=== PATIENT | male | born 1970 | race Caucasian/White ===

== ENCOUNTER → 2016-12-01 | Outpatient (REF) | payer OTHER ==
[~2016-12-01] MED LIST: /INSU7030; /OMEP10CA; AVAP300T; Avalide; BUDE150T; Byetta; FLUO40CA PO; GABA-282 PO; GLUC850T; GLUC850T PO; HYDR25TA6; INSULANT SC; INSUNSD SC; INVO300T PO; IRBE150T14 PO; LIPI20TA; OMEP20CA3 PO; POTA99TA PO; PRAV80TA2 PO; PRIL40CA; PROZ40CA; VENL150C43 PO; WELL75TA; ZOCO20TA; pristiq
[2016-12-01 11:30] LABS: FOLATE 15.2 NG/ML
== END ==
LOC: M LABNEURO 09:58
PROVIDERS: ATTEND Psychiatry & Neurology Neurology
DX: R20.2 Paresthesia of skin (principal)

== ENCOUNTER 2017-01-05 09:55 | Day surgery (SDC) | payer OTHER ==
[~2017-01-05] VITALS: Ht 180.3 cm; Wt 106.6 kg
[2017-01-05] MEDS ORDERED: BUPIVACAINE HCL 0.5% 30 ML VIAL As Ordered ONE (12:13)
[2017-01-05] MEDS ORDERED: MIDAZOLAM INJ 2 MG/2 ML VIAL (J2250) As Ordered ONE (12:39)
[2017-01-05] MEDS ORDERED: fentaNYL 250 MCG/5 ML INJECTION (J3010) As Ordered ONE (12:39)
[2017-01-05] MEDS ORDERED: LIDOCAINE 2% INJ 100 MG/5 ML SDV (FOR ANES.) As Ordered ONE (12:42)
[2017-01-05] MEDS ORDERED: PROPOFOL 200 MG/20 ML VIAL As Ordered ONE (12:42)
[2017-01-05] MEDS ORDERED: SUCCINYLCHOLINE 100 MG/5 ML SYRINGE (J0330) As Ordered ONE (12:42)
[2017-01-05] MEDS ORDERED: ONDANSETRON 4MG/2ML VIAL (J2405) As Ordered ONE (12:42)
[2017-01-05] MEDS ORDERED: dexameTHASONE 4 MG/ML 1ML VIAL (J1100) As Ordered ONE (12:42)
[2017-01-05] MEDS ORDERED: METOCLOPRAMIDE INJ 10MG/2ML VIAL (J2765) As Ordered ONE (12:43)
[2017-01-05] MEDS ORDERED: HYDROmorphone HCL 2 MG/ML 1ML VIAL (J1170) As Ordered ONE (15:34)
--- NOTE | 2017-01-05 16:36 | REP ---
Right foot intraoperative fluoroscopic views: There are two intraoperative fluoroscopic views. Fluoroscopic exposure time is 52.3 seconds. Fluoroscopic images are performed last image hold technology. These images require no additional radiation. Signed by Bimal Gutierrez MD 01/05/2017 04:27 P
[2017-01-05] MEDS ORDERED: oxyCODONE 5MG TAB PO PRN ×2 (16:45)
[2017-01-05] MEDS ORDERED: ONDANSETRON 4MG/2ML VIAL (J2405) IV PRN (16:45)
[2017-01-05] MEDS ORDERED: MEPERIDINE INJ 25 MG/ML VIAL (J2175) IV PRN (16:45)
[2017-01-05] MEDS ORDERED: METOCLOPRAMIDE INJ 10MG/2ML VIAL (J2765) IV PRN (16:45)
[2017-01-05] MEDS ORDERED: fentaNYL 100 MCG/2 ML INJECTION (J3010) IV PRN (16:45)
[2017-01-05] MEDS ORDERED: LR 1,000 ML IV SCH ×2 (16:45)
[2017-01-05] MEDS: PERCOCET 5MG/325MG TAB PO PRN ×2 (16:47→18:10)
[2017-01-05 19:50] VITALS: BP 138/86
--- NOTE | 2017-01-05 19:59 | RO ---
DATE OF PROCEDURE: 01/05/2017 PREPROCEDURE DIAGNOSIS: Right tibialis anterior tendonosis and rupture. POSTPROCEDURE DIAGNOSIS: Right tibialis anterior tendonosis rupture. PROCEDURE: Right posterior tendon transfer to the dorsum of the foot, FDL transfer to the navicular, FDL to FHL tenodesis, debridement of anterior tibial tendon stump SURGEON: Kimber Carter MD REGRINDER: Wilber Jonas MD ANESTHESIA: General endotracheal ESTIMATED BLOOD LOSS: 50 mL. TOURNIQUET TIME: 149 minutes IMPLANTS: Arthrex 7 x 23 mm BioComposite Bio-Tenodesis screw. COMPLICATIONS: None. CONDITION: Stable in recovery. INDICATIONS: Kenneth Ortiz is a 46-year-old male who sustained a right tibialis anterior rupture at the beginning of October. The patient has elected to undergo a posterior tibial tendon transfer to the dorsum of the foot given his foot drop, as he is young and would not like to be in a brace for the rest of his life. Risks and benefits of the surgery were discussed with the patient in detail, including infection, deep vein thrombosis (DVT)/pulmonary embolism (PE), continued pain or stiffness, a failed tendon transfer, need for additional procedures. Despite these risks, the patient wishes to proceed with the surgery. His diabetes is well controlled with his latest hemoglobin A1c at 7%. He was cleared preoperatively by both his medical doctor and wireline operator. DESCRIPTION OF PROCEDURE: The patient was met in the preoperative holding area where his right lower extremity was marked as the correct operative site. Informed consent was reviewed. He was taken to the operating room where he was transferred in the supine position to the operating room table. His bony prominences were well padded and a bump was placed under the ipsilateral hip. The patient underwent general anesthesia without any difficulty. He received preoperative Kefzol. The right lower extremity was prepped and draped in the normal sterile fashion. A well-padded tourniquet was applied prior to prepping and draping. Incisions were marked out over the posterior tibial tendon just proximal to the medial malleolus and a third incision over the tibialis anterior. The leg was exsanguinated and the tourniquet was inflated to 250 mmHg. At this point, an incision was made medially over the navicular. The posterior tibial tendon was identified. This was elevated off the navicular and medial cuneiform to include some of the periosteum to help with length of the tendon. The tendon was tubularized with #2 FiberWire. There were some areas of tendinosis in the posterior tibial tendon itself. These were debrided with a sharp #15 blade. Overall, the tendon did appear healthy enough for transfer. Next, an incision was made proximal to the medial malleolus just over the posteromedial border of the tibia. Blunt dissection at the level of the fascia was performed, and the fascia was incised exposing the posterior tibial tendon at this interval. The tendon was then pulled from the distal incision through the proximal incision. It was kept inside this incision for the time being. Next, an incision was made just lateral to the tibial crest, proximal to the tibiotalar joint in the area of the distal one-third of the tibia. The fascia was incised, and the tibialis anterior and neurovascular bundle were all retracted laterally. The interosseous membrane was exposed and a blunt aminah clamp was passed through the interosseous membrane to the medial incision. This clamp proved to be too large and eventually using a Promise clamp, we were able to pass the posterior tibial tendon through the interosseous membrane posteriorly out anteriorly through the distal tibia incision. The tendon had good excursion. It was placed into the wound to keep it moist. At this point, the lateral cuneiform was identified on x-ray. An incision was made over the lateral cuneiform and blunt dissection with care to protect the superficial peroneal nerve was performed. The fascia over the extensor digitorum longus (EDL) was incised, and the EDL and extensor digitorum brevis (EDB) were retracted. The lateral cuneiform was exposed. This was confirmed on oblique radiograph. At this point, the attention was turned back to the medial aspect of the foot. The flexor digitorum longus (FDL) was identified and dissected down to the knot of Curt with very careful hemostasis along the way. The flexor hallucis longus (FHL) and FDL were tenodesed using a #2 FiberWire in a [id number] fashion. The FDL was transected. At this point, using x-ray, a tunnel was drilled in the navicular for passage of the FDL. The FDL was passed through and then secured with #2 FiberWire with three [id number] sutures, two dorsally and one plantarly. The sutures in the tendon themselves were also sewn back to the remaining tissue using a free needle. The FDL transfer did appear to be secure. Next, at this point, the tenodesis of the posterior tibial tendon was performed. Using x-ray, a wire was passed in the center of the lateral cuneiform. A 7 mm reamer was used to approximately 25 mm. The tendon was passed through the bottom of the foot using a Beath pin. A 7 x 23 mm Bio-Tenodesis screw was selected and the tendon was secured to the lateral cuneiform with the foot in neutral dorsiflexion. All of the wounds were copiously irrigated, and the tourniquet was let down. Hemostasis was maintained. The deep tissues were closed using #3-0 Vicryl as were the subcutaneous tissues. Skin was closed using #3-0 nylon. Sterile dressings were applied in addition to a well-padded splint in neutral. PLAN: The patient will be non-weightbearing in a splint for 6 weeks. We will see him back at 2 weeks for a wound check. He may go into a cast for 2 weeks after this versus a boot. He will be on aspirin for deep vein thrombosis (DVT) prophylaxis. EZRA
== END 2017-01-05 20:00 | disposition home or self-care (01) ==
LOC: M SDC 09:55
PROVIDERS: ATTEND Orthopaedic Surgery
DX: M66.871 Spontaneous rupture of other tendons, right ankle and foot (principal); M65.871 Other synovitis and tenosynovitis, right ankle and foot; I10 Essential (primary) hypertension; E78.00 Pure hypercholesterolemia, unspecified; E11.9 Type 2 diabetes mellitus without complications; F41.9 Anxiety disorder, unspecified; F32.9 Major depressive disorder, single episode, unspecified; M47.892 Other spondylosis, cervical region; K21.9 Gastro-esophageal reflux disease without esophagitis; M12.9 Arthropathy, unspecified; M54.2 Cervicalgia; R56.9 Unspecified convulsions; Z79.899 Other long term (current) drug therapy; Z79.84 Long term (current) use of oral hypoglycemic drugs; Z79.4 Long term (current) use of insulin; Z98.84 Bariatric surgery status
CPT/HCPCS: 27691; 27692; 28230; 73610; 88304; C1713; J0330; J0690; J1100; J1170; J2250; J2405; J2765; J3010

== ENCOUNTER 2017-09-24 16:49 | Inpatient (IN) | payer OTHER ==
[2017-09-24 18:17] LABS: HEMATOCRIT 36.1 % (42.0-52.0); HEMOGLOBIN 10.4 g/dl (13.5-17.5); MEAN CORPUSCULAR HEMOGLOBIN 20.1 pg (27.0-33.0); MEAN CORPUSCULAR HGB CONC 28.8 g/dl (32.0-36.5); MEAN CORPUSCULAR VOLUME 69.8 fl (80.0-96.0); PLATELET COUNT, AUTOMATED 441 10^3/uL (150-450); RED BLOOD COUNT 5.17 10^6/uL (4.30-6.10); RED CELL DISTRIBUTION WIDTH 17.4 % (11.5-14.5); WHITE BLOOD COUNT 8.7 10^3/uL (4.0-10.0)
[2017-09-24 18:43] LABS: AMPHETAMINES LEVEL URINE NEGATIVE (NEGATIVE); BARBITURATES URINE NEGATIVE (NEGATIVE); BENZODIAZEPINES URINE NEGATIVE (NEGATIVE); CANNABINOIDS URINE NEGATIVE (NEGATIVE); COCAINE METABOLITE URINE NEGATIVE (NEGATIVE); METHADONE URINE NEGATIVE (NEGATIVE); OPIATES URINE NEGATIVE (NEGATIVE); PHENCYCLIDINE URINE NEGATIVE (NEGATIVE)
[2017-09-24 18:53] LABS: ACETAMINOPHEN LEVEL < 2.0 UG/ML (10.0-30.0); ALBUMIN/GLOBULIN RATIO 1.18 (1.00-1.93); ALKALINE PHOSPHATASE 71 U/L (45-117); ALT/SGPT 23 U/L (12-78); ANION GAP 10 MEQ/L (8-16); AST/SGOT 18 U/L (7-37); BILIRUBIN,DIRECT 0.2 MG/DL (0.0-0.2); BILIRUBIN,TOTAL 0.8 MG/DL (0.2-1.0); BLOOD UREA NITROGEN 9 MG/DL (7-18); CALCIUM LEVEL 8.7 MG/DL (8.5-10.1); CARBON DIOXIDE LEVEL 26 MEQ/L (21-32); CHLORIDE LEVEL 104 MEQ/L (98-107); CREATININE FOR GFR 0.68 MG/DL (0.70-1.30); ETHYL ALCOHOL (ETHANOL) < 0.003 % (0.000-0.010); GLOMERULAR FILTRATION RATE > 60.0 (>60); GLUCOSE, FASTING 120 MG/DL (70-100); SALICYLATE LEVEL < 1.7 MG/DL (5.0-30.0); SODIUM LEVEL 140 MEQ/L (136-145); TOTAL PROTEIN 7.4 GM/DL (6.4-8.2)
[2017-09-24] MEDS ORDERED: MAALOX 30 ML SUSP *UDC PO (19:45)
[2017-09-24] MEDS ORDERED: ACETAMINOPHEN TAB 650MG DOSE (2X325MG) PO (19:45)
[2017-09-24] MEDS ORDERED: MOM 30ML SUSPENSION UDC PO (19:45)
[2017-09-24] MEDS ORDERED: traZODone 50 MG TAB PO (19:45)
[2017-09-24 23:04] LABS: BEDSIDE GLUCOSE 86 MG/DL (70-105)
[2017-09-25] MEDS: LEVEMIR (INSULIN DETEMIR) 1 UNITS/0.01ML SC ×2 (00:52→21:52)
[2017-09-25] MEDS ORDERED: DEXTROSE 50% 50 ML SYRINGE IV (09:15)
[2017-09-25] MEDS ORDERED: OMEPRAZOLE 20 MG CAP PO (09:15)
[2017-09-25] MEDS ORDERED: GLUCOSE 4 GM CHEW TABLET PO (09:15)
[2017-09-25] MEDS ORDERED: GLUCAGON FOR INJ 1 MG VIAL (J1610) SC (09:15)
[2017-09-25 09:37] LABS: BEDSIDE GLUCOSE 176 MG/DL (70-105)
[2017-09-25] MEDS: GABAPENTIN 300 MG CAP PO ×3 (09:53→21:50)
[2017-09-25] MEDS: IRBESARTAN 75MG TABLET PO (10:29)
[2017-09-25 11:54] LABS: ESTIMATED AVERAGE GLUCOSE 171 MG/DL (60-110); HEMOGLOBIN A1c 7.6 %
[2017-09-25] MEDS: metFORMIN 850 MG TAB PO ×2 (12:11→17:02)
[2017-09-25] MEDS: HumaLOG INSULIN (NovoLOG) PER UNIT SC ×3 (12:13→21:00)
[2017-09-25 12:15] LABS: BEDSIDE GLUCOSE 127 MG/DL (70-105)
[2017-09-25] MEDS: VENLAFAXINE **XR** 75MG CAPSULE PO (16:46)
[2017-09-25] MEDS: FLUoxetine 20 MG CAP PO (16:46)
[2017-09-25 16:51] LABS: BEDSIDE GLUCOSE 117 MG/DL (70-105)
[2017-09-25] MEDS: ATORVASTATIN 20 MG TAB PO (21:50)
[2017-09-25] MEDS: ARIPiprazole 2 MG TAB PO (21:50)
[2017-09-25 21:52] LABS: BEDSIDE GLUCOSE 148 MG/DL (70-105)
[2017-09-26 06:24] LABS: BEDSIDE GLUCOSE 101 MG/DL (70-105)
[2017-09-26] MEDS: HumaLOG INSULIN (NovoLOG) PER UNIT SC ×4 (06:25→20:59)
[2017-09-26] MEDS: FLUoxetine 20 MG CAP PO (08:20)
[2017-09-26] MEDS: metFORMIN 850 MG TAB PO ×3 (08:20→17:09)
[2017-09-26] MEDS: VENLAFAXINE **XR** 75MG CAPSULE PO (08:20)
[2017-09-26] MEDS: GABAPENTIN 300 MG CAP PO ×3 (08:20→20:56)
[2017-09-26] MEDS: IRBESARTAN 75MG TABLET PO (08:20)
[2017-09-26] MEDS ORDERED: VENLAFAXINE 37.5 MG TAB PO (09:00)
[2017-09-26 12:06] LABS: BEDSIDE GLUCOSE 121 MG/DL (70-105)
[2017-09-26 16:26] LABS: BEDSIDE GLUCOSE 139 MG/DL (70-105)
[2017-09-26 20:55] LABS: BEDSIDE GLUCOSE 156 MG/DL (70-105)
[2017-09-26] MEDS: ATORVASTATIN 20 MG TAB PO (20:56)
[2017-09-26] MEDS: ARIPiprazole 2 MG TAB PO (20:56)
[2017-09-26] MEDS: LEVEMIR (INSULIN DETEMIR) 1 UNITS/0.01ML SC (21:00)
[2017-09-27 06:16] LABS: BEDSIDE GLUCOSE 129 MG/DL (70-105)
[2017-09-27] MEDS: HumaLOG INSULIN (NovoLOG) PER UNIT SC ×4 (06:37→20:17)
[2017-09-27] MEDS: FLUoxetine 20 MG CAP PO (08:22)
[2017-09-27] MEDS: metFORMIN 850 MG TAB PO ×3 (08:22→17:02)
[2017-09-27] MEDS: VENLAFAXINE **XR** 75MG CAPSULE PO (08:22)
[2017-09-27] MEDS: IRBESARTAN 75MG TABLET PO (08:23)
[2017-09-27] MEDS: GABAPENTIN 300 MG CAP PO ×3 (08:23→20:11)
[2017-09-27 11:44] LABS: BEDSIDE GLUCOSE 165 MG/DL (70-105)
[2017-09-27 17:01] LABS: BEDSIDE GLUCOSE 141 MG/DL (70-105)
[2017-09-27] MEDS: ATORVASTATIN 20 MG TAB PO (20:11)
[2017-09-27] MEDS: LEVEMIR (INSULIN DETEMIR) 1 UNITS/0.01ML SC (20:15)
[2017-09-27 20:18] LABS: BEDSIDE GLUCOSE 215 MG/DL (70-105)
[2017-09-28 06:15] LABS: BEDSIDE GLUCOSE 167 MG/DL (70-105)
[2017-09-28] MEDS: HumaLOG INSULIN (NovoLOG) PER UNIT SC ×2 (06:58→12:06)
[2017-09-28] MEDS: metFORMIN 850 MG TAB PO ×2 (08:34→12:06)
[2017-09-28] MEDS: FLUoxetine 20 MG CAP PO (08:34)
[2017-09-28] MEDS: IRBESARTAN 75MG TABLET PO (08:36)
[2017-09-28] MEDS: GABAPENTIN 300 MG CAP PO ×2 (08:36→15:56)
[2017-09-28] MEDS ORDERED: FLUoxetine 20 MG CAP PO (09:00)
[2017-09-28 11:23] LABS: BEDSIDE GLUCOSE 160 MG/DL (70-105)
[2017-09-28] MEDS ORDERED: PILL CRUSHER/CUTTER 1 EACH XX (13:30)
== END 2017-09-28 14:00 | disposition home or self-care (01) | DRG 885 ==
LOC: M PSY 09-25 03:41 → M ED 16:49 → M ED INP 19:45
DX: F33.9 Major depressive disorder, recurrent, unspecified (principal); R45.851 Suicidal ideations; F41.1 Generalized anxiety disorder; F43.9 Reaction to severe stress, unspecified; Z79.4 Long term (current) use of insulin; Z79.899 Other long term (current) drug therapy; I10 Essential (primary) hypertension; K21.9 Gastro-esophageal reflux disease without esophagitis; E11.40 Type 2 diabetes mellitus with diabetic neuropathy, unspecified; E78.5 Hyperlipidemia, unspecified; E66.9 Obesity, unspecified; Z68.32 Body mass index [BMI] 32.0-32.9, adult; Z98.84 Bariatric surgery status

== ENCOUNTER → 2017-12-12 | Outpatient (REF) | payer OTHER | LOC: M LAB REF 12:46 | DX: A09 Infectious gastroenteritis and colitis, unspecified (principal) ==

== ENCOUNTER → 2018-03-13 | Outpatient (REF) | payer OTHER ==
[~2018-03-13] MED LIST changes: +ARIP5TA PO; +ATOR80TA59 PO; +FERR325T3 PO; +FLUO20CA19 PO; -GABA-282 PO; +GABA-843 PO; +GABA800T4 PO; +INSULADS INJ; +IRBE150T12 PO; +METF850T4 PO; +VENL75CA2 PO
== END ==
LOC: M LAB REF 09:47
PROVIDERS: ATTEND Internal Medicine Gastroenterology
DX: D50.9 Iron deficiency anemia, unspecified (principal)

== ENCOUNTER 2018-03-29 09:07 | Day surgery (SDC) | payer OTHER ==
[~2018-03-29] VITALS: Ht 180.3 cm; Wt 99.2 kg
[~2018-03-29 09:07] MED LIST changes: +NS 1,000 ML IV ONE
[2018-03-29] MEDS ORDERED: LIDOCAINE 2% INJ 100 MG/5 ML SDV (FOR ANES.) As Ordered ONE (11:51)
[2018-03-29] MEDS ORDERED: PROPOFOL 500 MG/50 ML VIAL As Ordered ONE (11:51)
--- NOTE | 2018-03-29 11:58 | ROOR ---
Patient Name: Kenneth Ortiz Procedure Date: 03/29/2018 11:06 AM Date of : 1970 Age: 47 Room: [facility] Gender: Male Note Status: Finalized Procedure: Upper GI endoscopy Indications: Iron deficiency anemia, Weight loss Providers: Murray TOMLINSON MD Referring MD: PATO MUNIZ MD Requesting Provider: Medicines: Monitored Anesthesia Care Complications: No immediate complications. Procedure: Pre-Anesthesia Assessment: - The heart rate, respiratory rate, oxygen saturations, blood pressure, adequacy of pulmonary ventilation, and response to care were monitored throughout the procedure. The Endoscope was introduced through the mouth, and advanced to the jejunum. The upper GI endoscopy was accomplished without difficulty. The patient tolerated the procedure well. Findings: Moderately severe esophagitis was found in the lower third of the esophagus. Biopsies were taken with a cold forceps for histology. Diffuse mild inflammation characterized by erythema was found in the gastric body. Biopsies were taken with a cold forceps for Helicobacter pylori testing. Evidence of a Pranay-en-Y gastrojejunostomy was found. The gastrojejunal anastomosis was characterized by ulceration. This was biopsied with a cold forceps for histology. Three non-bleeding cratered and superficial ulcers with no stigmata of bleeding were found distal to the gastrojejunal anastomosis. The largest lesion was 8 mm in largest dimension. This was biopsied with a cold forceps for histology. Impression: - Pranay-en-Y gastrojejunostomy with gastrojejunal anastomosis characterized by post anastomotic ulceration. Biopsied. - Mild Gastritis. Biopsied. - Moderately severe reflux esophagitis. Rule out Jung's esophagus. Biopsied. Recommendation: - Use Prilosec (omeprazole) 20 mg twice a day indefinitely. (for short segment barretts esophagus) - (the script was sent to your pharmacy on file) - Telephone endoscopist for pathology results in 2 weeks. Murray Tomlinson MD Murray TOMLINSON MD 03/29/2018 11:57:47 AM This report has been signed electronically. Number of Addenda: 0 Note Initiated On: 03/29/2018 11:06 AM Estimated Blood Loss: Estimated blood loss: none.
--- NOTE | 2018-03-29 12:20 | ROOR ---
Patient Name: Kenneth Ortiz Procedure Date: 03/29/2018 11:37 AM Date of : 1970 Age: 47 Room: [facility] Gender: Male Note Status: Finalized Procedure: Colonoscopy Indications: Diarrhea, Weight loss Providers: Murray ANTONY MD Referring MD: PATO MUNIZ MD Requesting Provider: Medicines: Monitored Anesthesia Care Complications: No immediate complications. Procedure: Pre-Anesthesia Assessment: - The heart rate, respiratory rate, oxygen saturations, blood pressure, adequacy of pulmonary ventilation, and response to care were monitored throughout the procedure. The Colonoscope was introduced through the anus and advanced to 10 cm into the ileum. The colonoscopy was performed without difficulty. The patient tolerated the procedure well. The quality of the bowel preparation was good. Findings: The perianal and digital rectal examinations were normal. There was a medium-sized lipoma, 25 mm in diameter, in the mid ascending colon. This was biopsied with a cold forceps for histology. The exam was otherwise without abnormality on direct and retroflexion views. Biopsies for histology were taken with a cold forceps for evaluation of microscopic colitis. Impression: - Medium-sized lipoma (no significance) in the mid ascending colon. Biopsied. - The colon and terminal ileum examination was otherwise normal on direct and retroflexion views. - Biopsies were taken with a cold forceps for evaluation of microscopic colitis. Recommendation: - Telephone endoscopist for pathology results in 2 weeks. - Try Lactose free diet x 5 days. - Imodium 1 -2 tablet daily as needed fro diarrhea. Murray Antony MD Murray ANTONY MD 03/29/2018 12:20:12 PM This report has been signed electronically. Number of Addenda: 0 Note Initiated On: 03/29/2018 11:37 AM Estimated Blood Loss: Estimated blood loss: none.
[2018-03-29 12:45] VITALS: BP 127/75
== END 2018-03-29 12:47 | disposition home or self-care (01) ==
LOC: M OPP 09:07
PROVIDERS: ATTEND Internal Medicine Gastroenterology
DX: R19.7 Diarrhea, unspecified (principal); D12.2 Benign neoplasm of ascending colon; K20.9 Esophagitis, unspecified; K29.70 Gastritis, unspecified, without bleeding; K28.9 Gastrojejunal ulcer, unspecified as acute or chronic, without hemorrhage or perforation; D50.9 Iron deficiency anemia, unspecified; R63.4 Abnormal weight loss; E11.9 Type 2 diabetes mellitus without complications; F32.9 Major depressive disorder, single episode, unspecified; G62.9 Polyneuropathy, unspecified; Z80.0 Family history of malignant neoplasm of digestive organs; Z98.84 Bariatric surgery status; Z79.4 Long term (current) use of insulin; Z79.899 Other long term (current) drug therapy

== ENCOUNTER 2018-07-15 13:19 | Day surgery (SDC) | payer OTHER ==
[~2018-07-15] VITALS: Ht 180.3 cm; Wt 102.4 kg
[~2018-07-15 13:19] MED LIST changes: -/INSU7030; +ARIP1TAB6 PO; -ARIP5TA PO; +NOVO1INJ4; -NS 1,000 ML IV ONE; +OMEP10CASR PO
[2018-07-15] MEDS ORDERED: NS 1,000 ML IV ONE (14:15)
[2018-07-15] MEDS ORDERED: PROPOFOL 500 MG/50 ML VIAL As Ordered ONE (14:50)
[2018-07-15] MEDS ORDERED: fentaNYL 100 MCG/2 ML INJECTION (J3010) As Ordered ONE (14:50)
[2018-07-15] MEDS ORDERED: LIDOCAINE 2% INJ 100 MG/5 ML SDV (FOR ANES.) As Ordered ONE (14:50)
--- NOTE | 2018-07-15 15:00 | ROOR ---
Patient Name: Kenneth Ortiz Procedure Date: 07/15/2018 2:31 PM Date of : 1970 Age: 47 Room: [facility] Gender: Male Note Status: Finalized Procedure: Upper GI endoscopy Indications: Follow-up of gastrojejunal ulcer Providers: Murray ANTONY MD Referring MD: PATO MUNIZ MD Requesting Provider: Medicines: Monitored Anesthesia Care Complications: No immediate complications. Procedure: Pre-Anesthesia Assessment: - The heart rate, respiratory rate, oxygen saturations, blood pressure, adequacy of pulmonary ventilation, and response to care were monitored throughout the procedure. The Endoscope was introduced through the mouth, and advanced to the jejunum. The upper GI endoscopy was accomplished without difficulty. The patient tolerated the procedure well. Findings: The Z-line was variable and was found at the gastroesophageal junction. The examined esophagus was normal. Evidence of a Pranay-en-Y gastrojejunostomy was found. The gastrojejunal anastomosis was characterized by healthy appearing mucosa. The exam of the stomach was otherwise normal. The examined jejunum was normal. Impression: - Normal esophagus, Z-line variable, at the gastroesophageal junction. . - Pranay-en-Y gastrojejunostomy with gastrojejunal anastomosis characterized by healthy appearing mucosa. (ulceration has completely healed) - Normal examined jejunum. - No specimens collected. Recommendation: - Continue present medications. - Observe patient's clinical course. - Return to referring physician as previously scheduled. Murray Antony MD Murray ANTONY MD 07/15/2018 2:59:46 PM Electronically signed by Murray ANTONY MD Number of Addenda: 0 Note Initiated On: 07/15/2018 2:31 PM Estimated Blood Loss: Estimated blood loss: none.
[2018-07-15 15:28] VITALS: BP 124/70
== END 2018-07-15 15:30 | disposition home or self-care (01) ==
LOC: M OPP 13:19
PROVIDERS: ATTEND Internal Medicine Gastroenterology
DX: K22.8 Other specified diseases of esophagus (principal); Z98.84 Bariatric surgery status
CPT/HCPCS: 43235; J3010

== ENCOUNTER → 2022-05-26 | Outpatient (CLI) | payer OTHER ==
[~2022-05-26] MED LIST changes: -FLUO20CA19 PO; +FLUO20CA22 PO; +GABA-282 PO; -GABA-843 PO; -IRBE150T12 PO; +IRBE150T7 PO; +OMEP1CAP73 PO; -OMEP20CA3 PO
== END ==
LOC: M WHC 07:59
PROVIDERS: ATTEND Internal Medicine
DX: R32 Unspecified urinary incontinence (principal)

== ENCOUNTER → 2022-08-22 | Outpatient (REF) | payer OTHER ==
[2022-08-22 22:17] LABS: APPEARANCE, URINE MANUAL CLEAR (CLEAR); COLOR, URINE MANUAL YELLOW (YELLOW); GLUCOSE, URINE (UA) MANUAL TRACE(50 MG/DL) mg/dL (NEGATIVE); PROTEIN, URINE MANUAL NEGATIVE (NEGATIVE)
[2022-08-22 22:18] LABS: BILIRUBIN, URINE MANUAL 1+ (NEGATIVE); BLOOD URINE MANUAL TRACE (NEGATIVE); KETONE, URINE MANUAL NEGATIVE (NEGATIVE); LEUKOCYTE ESTERASE, URINE MAN NEGATIVE (NEGATIVE); NITRITE, URINE MANUAL NEGATIVE (NEGATIVE); UROBILINOGEN, URINE MANUAL 1 MG mg/dl (NORMAL)
[2022-08-22 22:42] LABS: RBC, URINE 0-1 /hpf (0-3); SQUAMOUS EPITHELIAL CELL URINE SMALL AMOUNT /hpf (SMALL AMT); WBC, URINE 0-1 /hpf (0-3)
[2022-08-22 22:43] LABS: BACTERIA, URINE NONE SEEN; HYALINE CAST, URINE NONE SEEN /lpf (0-1); MUCUS, URINE SMALL AMOUNT (NEGATIVE)
== END ==
LOC: M LAB REF 17:07
PROVIDERS: ATTEND Urology
DX: R32 Unspecified urinary incontinence (principal)

== ENCOUNTER → 2023-07-19 | Outpatient (CLI) | payer OTHER ==
[~2023-07-19] MED LIST changes: +IRBE150T27 PO; -IRBE150T7 PO
== END ==
LOC: M SLEEP 20:00
PROVIDERS: ATTEND Physician Assistant
DX: G47.33 Obstructive sleep apnea (adult) (pediatric) (principal); G47.61 Periodic limb movement disorder

== ENCOUNTER → 2023-11-25 | Outpatient (REF) | payer OTHER ==
[~2023-11-25] MED LIST changes: +FLUO-365 PO; -FLUO20CA22 PO; +GABA-1635 PO; -GABA800T4 PO
== END ==
LOC: M LABSMT 11:09
PROVIDERS: ATTEND Urology
DX: Z12.5 Encounter for screening for malignant neoplasm of prostate (principal)

== ENCOUNTER → 2023-12-22 | Outpatient (CLI) | payer OTHER ==
[~2023-12-22] MED LIST changes: +GABA-1172 PO; -GABA-282 PO
[2023-12-22 14:25] LABS: BASO % 0.4 % (0.0-1.0); EOS # 0.1 10^3/uL (0.0-0.5); EOS % 1.6 % (0.0-3.0); HEMATOCRIT 41.7 % (42.0-52.0); HEMOGLOBIN 13.3 g/dl (13.5-17.5); LYMPH # 1.7 10^3/uL (1.5-5.0); LYMPH % 29.2 % (24.0-44.0); MEAN CORPUSCULAR HEMOGLOBIN 28.4 pg (27.0-33.0); MEAN CORPUSCULAR HGB CONC 31.9 g/dl (32.0-36.5); MEAN CORPUSCULAR VOLUME 88.9 fl (80.0-96.0); MONO # 0.4 10^3/uL (0.0-0.8); MONO % 7.1 % (2.0-8.0); NEUTROPHILS # 3.5 10^3/uL (1.5-8.5); NEUTROPHILS % 61.2 % (36.0-66.0); PLATELET COUNT, AUTOMATED 324 10^3/uL (150-450); RED BLOOD COUNT 4.69 10^6/uL (4.30-6.10); WHITE BLOOD COUNT 5.7 10^3/uL (4.0-10.0)
[2023-12-22 15:10] LABS: THYROID STIMULATING HORMONE 1.461 uIU/ML (0.55-4.78)
[2023-12-22 15:11] LABS: ALBUMIN 3.6 G/DL (3.2-5.2); ALKALINE PHOSPHATASE 56 U/L (46-116); ALT/SGPT 69 U/L (7.0-40); AST/SGOT 47 U/L (<34); BILIRUBIN,TOTAL 0.7 MG/DL (0.3-1.2); BLOOD UREA NITROGEN 17 MG/DL (9-23); CALCIUM LEVEL 9.3 MG/DL (8.5-10.1); CARBON DIOXIDE LEVEL 30 MMOL/L (20-31); CHLORIDE LEVEL 100 MMOL/L (98-107); CREATININE FOR GFR 0.89 MG/DL (0.70-1.30); GLOMERULAR FILTRATION RATE > 60.0 (>56); GLUCOSE, FASTING 140 MG/DL (60-100); POTASSIUM SERUM 4.4 MMOL/L (3.5-5.1); SODIUM LEVEL 137 MMOL/L (136-145); TOTAL PROTEIN 7.1 G/DL (5.7-8.2)
== END ==
LOC: M WUC 09:44
PROVIDERS: ATTEND Internal Medicine
DX: R53.83 Other fatigue (principal); E11.42 Type 2 diabetes mellitus with diabetic polyneuropathy

== ENCOUNTER → 2024-03-15 | Outpatient (CLI) | payer OTHER ==
[~2024-03-15] MED LIST changes: +ISOVUE-370 76% 100ML VIAL ONE
== END ==
LOC: M PLAIMG 10:50
PROVIDERS: ATTEND Internal Medicine
DX: R10.13 Epigastric pain (principal); I25.10 Atherosclerotic heart disease of native coronary artery without angina pectoris; Z98.84 Bariatric surgery status; K76.0 Fatty (change of) liver, not elsewhere classified; K80.20 Calculus of gallbladder without cholecystitis without obstruction; K86.89 Other specified diseases of pancreas
CPT/HCPCS: 74177; Q9967

== ENCOUNTER → 2024-04-14 | Outpatient (CLI) | payer OTHER ==
[~2024-04-14] MED LIST changes: -ISOVUE-370 76% 100ML VIAL ONE
== END ==
LOC: M PLAIMG 07:34
PROVIDERS: ATTEND Internal Medicine
DX: D37.8 Neoplasm of uncertain behavior of other specified digestive organs (principal); K80.20 Calculus of gallbladder without cholecystitis without obstruction; E27.8 Other specified disorders of adrenal gland; Z98.84 Bariatric surgery status

== ENCOUNTER → 2024-05-31 | Outpatient (REF) | LOC: M PLAIMG 09:42 | PROVIDERS: ATTEND Internal Medicine | DX: R52 Pain, unspecified (principal) ==

== ENCOUNTER → 2024-09-15 | Outpatient (CLI) | payer OTHER ==
[~2024-09-15] MED LIST changes: -PRAV80TA2 PO; +PRAV80TA75 PO
== END ==
LOC: M PLARAD 09:10
PROVIDERS: ATTEND Physician Assistant
DX: K86.2 Cyst of pancreas (principal); K80.20 Calculus of gallbladder without cholecystitis without obstruction; K76.0 Fatty (change of) liver, not elsewhere classified; R94.5 Abnormal results of liver function studies; K21.9 Gastro-esophageal reflux disease without esophagitis; R68.81 Early satiety; R11.2 Nausea with vomiting, unspecified; R10.84 Generalized abdominal pain; R19.4 Change in bowel habit

== ENCOUNTER → 2024-12-02 | Outpatient (CLI) | payer OTHER ==
[2024-12-02 14:40] LABS: BASO # 0.0 10^3/uL (0.0-0.2); BASO % 0.5 % (0.0-1.0); EOS # 0.2 10^3/uL (0.0-0.5); EOS % 2.3 % (0.0-3.0); LYMPH # 1.4 10^3/uL (1.5-5.0); LYMPH % 19.5 % (24.0-44.0); MONO # 0.5 10^3/uL (0.0-0.8); MONO % 6.1 % (2.0-8.0); NEUTROPHILS # 5.3 10^3/uL (1.5-8.5); NEUTROPHILS % 71.2 % (36.0-66.0); PLATELET COUNT, AUTOMATED 331 10^3/uL (150-450)
[2024-12-02 14:47] LABS: ALT/SGPT 47 U/L (7.0-40); AST/SGOT 42 U/L (<34); CALCIUM LEVEL 9.5 MG/DL (8.5-10.1); CARBON DIOXIDE LEVEL 27 MMOL/L (20-31); CHLORIDE LEVEL 97 MMOL/L (98-107); CHOLESTEROL LEVEL 109 MG/DL (<200); CHOLESTEROL RISK RATIO 3.48 (<5); CREATININE FOR GFR 0.93 MG/DL (0.70-1.30); GLOMERULAR FILTRATION RATE > 90.0 (>56); LDL CHOLESTEROL 48.5 MG/DL (<100); NON-HDL-C 77.7 MG/DL; POTASSIUM SERUM 4.6 MMOL/L (3.5-5.1); SODIUM LEVEL 134 MMOL/L (136-145); TRIGLYCERIDES LEVEL 146 MG/DL (<150)
[2024-12-02 15:15] LABS: ESTIMATED AVERAGE GLUCOSE 232.0 MG/DL (60-110)
== END ==
LOC: M WUC 11:23
PROVIDERS: ATTEND Internal Medicine
DX: E78.2 Mixed hyperlipidemia (principal); E11.42 Type 2 diabetes mellitus with diabetic polyneuropathy